=== PATIENT | female | born 1950 | race Caucasian/White ===

== ENCOUNTER 2025-10-13 10:55 | Emergency (ER) | payer MEDICARE, OTHER ==
[~2025-10-13] VITALS: Ht 157.5 cm; Wt 49.5 kg
[~2025-10-13 10:55] MED LIST: DILT-117 PO; FIDA200T PO; HYDR25TA4 PO; IBUP-1984 PO; POTA-207 PO
[2025-10-13 10:59] VITALS: TEMP 98.3
--- NOTE | 2025-10-13 11:25 | Physician Documentation ---
History of Present Illness ~ Chief Complaint: Urinary Retention Stated Complaint: POST OP COMPLICATIONS Time Seen by MD: 11:13 Source: patient HPI 75 y/o F presenting with 5 days of urinary retention. Per patient she got surgery for bladder prolapse 8 days ago, was told to remove her catheter after 3 days. She has only urinated "trickles" since then despite not decreasing water intake. Does not want to push/strain to urinate because of stitches. Discomfort and urge to urinate but no pain. No fever/chills, hematuria, back pain, dizziness, changes in bowel movements. Medication Reconciliation Allergies: Coded Allergies: No Known Allergies (Unverified , 08/31/22) Scheduled Diltiazem HCl (Diltiazem ER), 1 CAP PO DAILY, (Reported) Fidaxomicin (Dificid), 200 MG PO BID Hydrochlorothiazide (Hydrochlorothiazide), 1 TAB PO DAILY, (Reported) Potassium Chloride* (K-Dur*), 1 TAB PO DAILY, (Reported) Scheduled PRN Ibuprofen* (Motrin*), 200 MG PO Q6H PRN PRN for pain, (Reported) Past Medical History Past Medical History: No Pertinent History Past Surgical History: , other (bladder surgery) Alcohol Use: None Drug Use: none Lives In: Home Review of Systems All Other Systems at this time: Reviewed and Negative Physical Exam Vital Signs: Temperature: 98.3, Source: Oral, Heart Rate: 70, Respiratory Rate: 16, BP: 152/70, Pulse Oximetry: 97, Weight: 49.500 Oxygen Flow Rate: 0 Physical Exam VITALS: Reviewed and as above. GENERAL: Alert, in mild distress. HEENT: Normocephalic, atraumatic, PERRL, EOMI, dry mucosa, no erythema RESPIRATORY: Lungs clear, normal breath sounds, no respiratory distress. CHEST: No accessory muscle use, no retractions CV: Regular rate, rhythm, no edema, no murmur, No: JVD GI: Soft, non-tender, bowels sounds present, no rebound, guarding, or rigidity BACK: No CVA tenderness, or swelling MUSCULOSKELETAL No deformities, no edema SKIN: Warm and dry, no rash NEURO: Oriented x4, No motor or sensory deficit PSYCH: Normal mood and affect, no agitation Progress Results/Orders Results/Orders Orders - KALPESH VALDIVIA MD * Bladder Scan / Post Residual (10/13/25 11:16) * (A) Helms- Protocol * Q12H@07,19 (10/13/25 11:18) Straight Cath For Urine Sample (10/13/25 11:38) Completed Orders - KALPESH VALDIVIA MD Lidocaine 2% Jelly 11ml Syr (Glydo-Lidoc (10/13/25 11:20) Urinalysis, Cult If Indicated (10/13/25 11:38) Medications Received in ER Medications (Trade) Dose Ordered Sig/Jose Route PRN Reason Start Time Stop Time Status Last Admin Dose Admin (GLYDO-Lidocaine 2% Topical Jelly 11mL syringe) 1 applic ONCE ONCE TOP 10/13/25 11:20 10/13/25 11:21 DC 10/13/25 12:16 1 APPLIC Vital Signs 10/13/25 10/13/25 10/13/25 10:59 11:46 13:14 Temp 98.3 Pulse 70 65 Resp 16 16 16 B/P (MAP) 152/70 125/63 (83) Pulse Ox 97 96 O2 Flow Rate 0 0 Laboratory Tests Test 10/13/25 12:15 Urine Specimen Description Helms cath Urine Color Yellow Urine Clarity Clear Urine pH 7.0 Urine Specific [place] <=1.005 Urine Protein Negative Urine Glucose (UA) Negative Urine Ketones Negative Urine Occult Blood Negative Urine Nitrite Negative Urine Bilirubin Negative Urine Urobilinogen 0.2 Urine Leukocyte Esterase Negative Urine Culture Indicated Not ind Volume Urine Centrifuged 10 ml Urine Comment Medical Decision Making Findings Initial concerns were significant for urinary retention, UTI, urolithiasis, urinary outflow obstruction, renal failure, surgical complications. A Helms was inserted and drained 207 mL of urine with immediate relief of patient's symptoms. UA was unremarkable. Attempted to contact patient's urologist Dr. Eden ([phone]), left message no response. Discharged patient with the Helms inserted, she was instructed to call Dr Eden first thing tomorrow to let him know what happened today and for further instruction on management of her Helms and her symptoms. Also told patient to try and move her follow-up appointment up to see her urologist in 1-2 weeks. Given strict return precautions. Urinary Diff Dx:Considerations: Include: Post-Op complication, Pyelonephritis, Renal failure, Strain, Urinary Obstruction, Urolithiasis, Urinary retention, UTI Additional Comment Bladder scan showed 207 mL of retained urine. Departure Disposition: 01 HOME / SELF CARE / HOMELESS Impression: Primary Impression: Acute urinary retention Condition: Improved Discharge Instructions: Acute Urinary Retention, Female Additional Instructions: Please keep Helms catheter in place. Please call your urologist as soon as possible and arrange close follow up with them. Return to the ED with any acutely worsening symptoms. Referrals: NO PRIMARY CARE PROVIDER (PCP) Education Educated: Patient Educated regarding: diagnosis, need for follow up KALPESH VALDIVIA MD Oct 13, 2025 11:24
[2025-10-13] MEDS: LidoCAINE 2% Topical Jelly 11mL syringe (UROJET) TOP ONE (12:16)
[2025-10-13 12:42] LABS: LEUKOCYTE ESTERASE ,URINE NEGATIVE (Neg); NITRITES, URINE NEGATIVE (Neg); OCCULT BLOOD,URINE NEGATIVE (Neg)
[2025-10-13 12:48] LABS: UA COLLECTION TYPE FOLEY CATH
[2025-10-13 14:56] VITALS: BP 126/88; PULSE 72; RESP 16; O2SAT 97
== END 2025-10-13 14:59 | disposition home or self-care (01) ==
LOC: ER 10:55
DX: R33.9 Retention of urine, unspecified (principal); Z79.899 Other long term (current) drug therapy
CPT/HCPCS: 51702; 51798; 81003; 99284; A4314; A4358; A5200

== ENCOUNTER 2025-10-18 02:15 | Emergency (ER) | payer MEDICARE, OTHER ==
[~2025-10-18] VITALS: Ht 157.5 cm; Wt 48.1 kg
[2025-10-18 02:16] VITALS: BP 132/73
[2025-10-18 03:09] LABS: UA COLLECTION TYPE NON-SPECIFIED
[2025-10-18 03:17] LABS: SQUAMOUS EPITHELIAL CELL,UR FEW /LPF (FEW)
[2025-10-18] MEDS ORDERED: AMOX-117 PO (04:28)
--- NOTE | 2025-10-18 04:28 | Physician Documentation ---
History of Present Illness ~ Chief Complaint: Blood in Urine Stated Complaint: BLOOD IN CATHETOR Time Seen by MD: 03:00 HPI This is a 75-year-old female status post bladder prolapse surgery on the and September 2025, status post catheter removal, status post acute urinary retention and replacement catheter placement presents for evaluation of hematuria. Mild transient blood-tinged urine was noted several days ago, woke up this morning and noticed that her urine was Kathryn colored. Denies blood thinners. Denies any pain. Denies any fever, chills. Denies any nausea vomiting diarrhea. Did not contact her urologist. Medication Reconciliation Allergies: Coded Allergies: No Known Allergies (Unverified , 08/31/22) Scheduled Diltiazem HCl (Diltiazem ER), 1 CAP PO DAILY, (Reported) Fidaxomicin (Dificid), 200 MG PO BID Hydrochlorothiazide (Hydrochlorothiazide), 1 TAB PO DAILY, (Reported) Potassium Chloride* (K-Dur*), 1 TAB PO DAILY, (Reported) Scheduled PRN Ibuprofen* (Motrin*), 200 MG PO Q6H PRN PRN for pain, (Reported) Past Medical History Past Medical History: No Pertinent History Past Surgical History: , other Alcohol Use: None Drug Use: none Lives In: Home Review of Systems ROS 10 point review of systems was performed and unless noted above in HPI is negative for acute process/complaint. Physical Exam Vital Signs: Temperature: 97.7, Source: Temporal, Heart Rate: 65, Respiratory Rate: 18, BP: 132/73, Pulse Oximetry: 97, Weight: 48.100 Oxygen Flow Rate: 0 Physical Exam Physical examination: GENERAL: Awake, alert, oriented, GCS 15, no apparent distress, non-toxic ap pearing, answers questions, follows commands appropriately. HEENT: Atraumatic, normocephalic, pupils equal, extraocular muscles intact Active gross movements, sclerae anicteric, mucus membranes moist, no stridor. NECK: Midline, no JVD CARDIOVASCULAR: Good skin perfusion without evidence of pallor, mottling. PULMONARY: Nonlabored, symmetric chest rise, no audible wheezing, no accessory muscle use, no respiratory distress, speaking in full sentences. GASTROINTESTINAL: Not distended. NEUROLOGIC: Lucid with normal mental status. Normal facial symmetry. Moves all extremities symmetrically and with purpose. No truncal ataxia. Speech is fluid without evidence of dysarthria or aphasia, no focal deficits appreciated. EXTREMITIES: Acute deformities Skin: warm, dry PSYCHIATRIC: Normal affect, normal insight, normal concentration. Focused exam: Mildly red colored darker urine without sediment noticed in the bag. Progress Results/Orders Results/Orders Orders - TYRONE KEEN DO Straight Cath For Urine Sample (10/18/25 03:00) Cult Urine + [place] [address] (10/18/25 03:17) Completed Orders - TYRONE KEEN DO Ua W/Microscopic, Cult If Ind (10/18/25 03:00) Vital Signs 10/18/25 02:16 Temp 97.7 Pulse 65 Resp 18 B/P (MAP) 132/73 Pulse Ox 97 O2 Flow Rate 0 Laboratory Tests Test 10/18/25 03:00 Urine Specimen Description Non-specified Urine Color Red Urine Clarity Cloudy Urine pH Urine Specific [place] Urine Protein Urine Glucose (UA) Urine Ketones Urine Occult Blood Urine Nitrite Urine Bilirubin Urine Urobilinogen Urine Leukocyte Esterase Urine RBC Tntc Urine WBC 50-100 H Urine Squamous Epithelial Cells Few Urine Bacteria 3+ Urine Culture Indicated Indicated Volume Urine Centrifuged 10 ml Urine Comment Microbiology Date/Time Source Procedure Growth Status 10/18/25 03:17 Urine Nonspecified Urine Culture - Preliminary Culture received. Resulted Medical Decision Making Additional information obtaine: old records Findings Facility Status: ED [facility], [facility] process The plan was discussed with the patient, who demonstrates clear understanding of the plan and is in agreement with the plan unless otherwise noted in the chart. All questions have been answered, all concerns were addressed unless otherwise documented. I was available throughout their ED stay for frequent reassessment and questions. Differential Diagnoses (considered and possible or likely): [Hemorrhagic cystitis, UTI, less likely pyelitis pyelonephritis, unlikely stone, unlikely infected stone] ??Differential Diagnoses (considered and unlikely, not requiring evaluation currently): [See above] MDM Data Please see HPI for the following: Independent Historians and external Records Review. Historian: [Patient] Independent Historians: ?[Has been resident that has been removed] Medication Management: [Reviewed medication list] Social History and determinants: [Reviewed] Please see the body of the note for the following: Any independent interpretations of ECG, imaging studies. All vitals signs/haemodynamics, ordered tests were independently reviewed and interpreted by myself. Nursing triage complaint and vitals reviewed, additional nursing notes were reviewed as available and I agree unless otherwise noted or documented in contradiction in the chart Vital Signs: Independently reviewed Labs: Independently interpreted Imaging: Independently interpreted Old Medical Records: Independently reviewed, see HPI for relevant summary and information Additionally notably showing: [Hemodynamically stable. Urine positive for UTI.] Tests considered but not ordered include: [Imaging has been considerably the patient is very well-appearing, she is not in any distress.] Social Determinants of Health Impact: Patient was evaluated in [facility], [facility] [place] to healthcare due to below par ratio of patient to medical providers. [] Comorbid Conditions Impacting Present Evaluation and Care/Treatment: [Recent surgery, indwelling Helms catheter] Management Discussions with other Healthcare Providers: [None] Treatment and Disposition Medication Management (Given or considered): []. See EMR for details Consideration for Hospitalization/Escalation/Deescalation of Care: Admission for observation has been considered, [however the patient is able to tolerate p.o., their symptoms are controlled, they are able to rely on oral medications, and their chief complaint/diagnosis can be managed on outpatient basis.] ?ED Course:?[No clinical deterioration] ?Shared decision making:?[Patient is hemodynamically stable for discharge home with follow with their primary care provider. [ ] Specific and cautious return precautions provided and discussed with full understanding. Any incidental findings were also discussed and follow up recommendations given. [] All questions answered. Patient/family were able to verbalize back return precautions. Patient/family agree to plan. Copies of imaging and laboratory studies were provided.] Code status:?FULL Please see the full Electronic Medical Record for full details of nursing documentation, medications list, other records of complete past medical history and conditions, vital signs, laboratory studies, and any radiologic study interpretations by radiologists. Portions of this note were completed using [employer] dictation software and as a result there may exist minor errors in spelling. I have reviewed elements of past family and social history and agree as included in note. Urinary Diff Dx:Considerations: Include: Other (See body of the main note for differential diagnosis) Genital Diff Dx:Considerations: Unlikely: Other Departure Disposition: HOME / SELF CARE / HOMELESS Impression: Primary Impression: Hemorrhagic cystitis Condition: Stable Discharge Instructions: Hematuria, Adult, Urinary Tract Infection, Adult Referrals: NO PRIMARY CARE PROVIDER (PCP) Prescriptions Amox Tr/Potassium Clavulanate (Augmentin 875-125 Tablet) 1 Each Tablet 1 TAB PO Q12H for 14 Days, #28 TAB Prov: TYRONE KEEN DO 10/18/25 Education Educated: Patient Educated regarding: diagnosis, treatment, prognosis, need for follow up Signature Scribe Signature: No scribe Attestation: The note accurately reflects work and decisions made by me.Tyrone Keen DO 10/18/25 04:28 TYRONE KEEN DO Oct 18, 2025 04:28
[2025-10-18 04:39] VITALS: PULSE 80; RESP 16; TEMP 97.7; O2SAT 96
== END 2025-10-18 04:40 | disposition home or self-care (01) ==
LOC: ER 02:16
DX: N30.91 Cystitis, unspecified with hematuria (principal); Z79.899 Other long term (current) drug therapy; Z98.890 Other specified postprocedural states
CPT/HCPCS: 81001; 87077; 87088; 87186; 99283